=== PATIENT | female | born 1985 | race American Indian/Alaskan Native ===

== ENCOUNTER 2019-05-10 00:13 | Inpatient (IN) | payer OTHER ==
[2019-05-10] MEDS ORDERED: LACTATED RINGERS 500 ML IV ONE (00:46)
[2019-05-10] MEDS ORDERED: LACTATED RINGERS 1,000 ML IV ONE (01:08)
[2019-05-10 01:36] LABS: Hemoglobin 11.8 gm/dl (10.1-14.3); Mean Corpuscular HGB Conc 34 % (30-34); Mean Corpuscular Volume 80 fl (79-97); Platelet Count 270 K/mm3 (140-440); Red Blood Count 4.36 M/mm3 (3.65-5.03); Red Cell Distribution Width 13.7 % (13.2-15.2)
[2019-05-10 01:54] LABS: Alanine Aminotransferase 10 units/L (7-56)
[2019-05-10 02:52] LABS: Amorphous Crystals,Urine Few; Bilirubin,Urine NEG (Negative); Blood,Urine NEG (Negative); Color,Urine Yellow (Yellow); Mucus,Urine FEW /HPF
[2019-05-10 02:59] LABS: Amphetamine Screen,Urine PRESUMPTIVE NEGATIVE; Benzodiazepines Screen,Urine PRESUMPTIVE NEGATIVE; Cannabinoid Screen,Urine PRESUMPTIVE NEGATIVE; Cocaine Screen,Urine PRESUMPTIVE NEGATIVE; Methadone Screen,Urine PRESUMPTIVE NEGATIVE; Opiate Screen,Urine PRESUMPTIVE NEGATIVE
[2019-05-10 03:06] LABS: Uric Acid 4.7 mg/dL (3.5-7.6)
[2019-05-10] MEDS ORDERED: TYLENOL PO ONE (03:48)
[2019-05-10] MEDS: NORMODYNE PO SCH ×3 (04:23→22:42)
[2019-05-10] MEDS: APRESOLINE IV PRN ×2 (04:35→07:35)
[2019-05-10] MEDS ORDERED: BICITRA ONE (05:20)
[2019-05-10] MEDS ORDERED: BICITRA PO ONE (05:46)
[2019-05-10] MEDS ORDERED: SUBLIMAZE ONE (07:16)
--- NOTE | 2019-05-10 07:46 | History and Physical Report ---
History of Present Illness Date of examination: 05/10/19 Date of admission: 05/10/19 03:25 Chief complaint: pain History of present illness: 33y/o @ 33+1 weeks presents to triage with the complaint of abdominal pain. The patient has had limited care was last evaluated in January. Upon evaluation, the patient was found to have elevated blood pressures. LFTs wnl. Patient reports a history of hypertension but has not had meds. Past History Past Medical History: hypertension, other (morbid obesity; ectopic treated with Mtx) Past Surgical History: no surgical history Social history: single - Obstetrical History Expected Date of Delivery: 06/27/19 Actual Gestation: 33 Week(s) 1 Day(s) : 2 Para: 0 Hx # Term Pregnancies: 0 Number of Pregnancies: 0 Spontaneous Abortions: 1 Induced : 0 Number of Living Children: 0 Medications and Allergies Allergies Allergy/AdvReac Type Severity Reaction Status Date / Time No Known Allergies Allergy Unverified 03/20/15 19:31 Home Medications Medication Instructions Recorded Confirmed Last Taken Type HYDROcodone/APAP 5-325 [[place] 1 each PO Q6HR PRN #20 tablet 03/21/15 Unknown Rx 5/325] Active Meds: Active Medications Fentanyl (Sublimaze) 100 mcg IV ONCE ONE Stop: 05/10/19 08:01 Last Admin: 05/10/19 07:32 Dose: 100 mcg Documented by: Hydralazine HCl (Apresoline) 5 mg IV Q30MIN PRN PRN Reason: Increased Blood Pressure Last Admin: 05/10/19 07:35 Dose: 5 mg Documented by: Dextrose/Lactated Ringer's (D5lr) 1,000 mls @ 125 mls/hr IV DIRECT KHRIS Labetalol HCl (Normodyne) 200 mg PO BID KHRIS Last Admin: 05/10/19 04:23 Dose: 200 mg Documented by: Review of Systems All systems: negative Gastrointestinal: abdominal pain - Vital Signs Vital signs: Vital Signs Pulse BP Pulse Ox 97 H 187/105 91 05/10/19 00:39 05/10/19 00:39 05/10/19 00:39 Temp Pulse Resp BP Pulse Ox 104 H 20 182/91 82 L 05/10/19 07:35 05/10/19 07:32 05/10/19 07:35 05/10/19 01:24 - Physical Exam Breasts: Positive: deferred Cardiovascular: Regular rate Lungs: Positive: Clear to auscultation Results Result Diagrams: 05/10/19 01:00 05/10/19 01:00 Abnormal lab results 05/10/19 05/10/19 Range/Units 01:00 01:00 MCH 27 L (28-32) pg Creatinine 0.5 L (0.7-1.2) mg/dL Lactate Dehydrogenase 192 H (91-180) units/L All other labs normal. Assessment and Plan - Patient Problems (1) Abdominal pain affecting Current Visit: Yes Status: Acute Plan to address problem: obtain RUQ ultrasound administer steroids for lung maturity collect 24 hour urine management of blood pressures (2) Hypertension affecting Current Visit: Yes Status: Acute
[2019-05-10] MEDS ORDERED: COLACE PO PRN (08:00)
[2019-05-10] MEDS ORDERED: SUBLIMAZE IV ONE (08:00)
[2019-05-10] MEDS ORDERED: MAGNESIUM SULFATE 4GM/100ML 4 GM/100 ML BAG IV ONE (08:24)
[2019-05-10 10:08] LABS: Hepatitis C Virus Antibody Non-Reactive (NonReactive)
--- NOTE | 2019-05-10 10:16 | Ultrasound Report ---
OB ULTRASOUND >= 14 WEEKS FETUS INDICATION: No care, well-being COMPARISON: FINDINGS: A single gestation intrauterine is present with cephalic presentation. The placenta is ante rior, grade 1 and free of the cervical os. heart tones measure 129 bpm. The cervix measures 4. 9 cm. Amniotic fluid volume is normal with a fluid index of 13.3. anatomical survey was not performed. Biparietal diameter is 8.5 cm which equals 34 weeks 2 days. Head circumference is 31.2 cm which equals 34 weeks 6 days. Abdominal circumference is 32.0 cm which equals 35 weeks 6 days. Femur length is 6.4 cm which equals 33 weeks 0 days. Overall estimated sonographic age is 34 weeks 4 days. HC/AC ratio: 0.97 Cephalic index: 95.0 Estimated weight: 2536 g +/- 3 175 g. Estimated weight percentile: 89.. IMPRESSION: Viable, single intrauterine as described. No acute abnormality is detected. Signer Name: Arnoldo Morales Jr, MD Signed: 05/10/2019 10:12 AM Workstation Name: [id number]
[2019-05-10] MEDS: CELESTONE SOLUSPAN IM SCH (10:25)
[2019-05-10] MEDS: MAGNESIUM SULFATE 40GM/1000ML 40 GM/1,000 ML BAG IV SCH (10:57)
[2019-05-10] MEDS: STADOL IV PRN (11:24)
[2019-05-10] MEDS: PRENATAL VITAMIN PO SCH (11:25)
[2019-05-10] MEDS: D5LR 1,000 ML IV SCH (17:32)
--- NOTE | 2019-05-10 17:56 | Consultation ---
History of Present Illness Consult date: 05/10/19 Past History Past Medical History: hypertension, other (morbid obesity; ectopic treated with Mtx) Past Surgical History: no surgical history - Obstetrical History : 2 Medications and Allergies Allergies Allergy/AdvReac Type Severity Reaction Status Date / Time No Known Allergies Allergy Unverified 03/20/15 19:31 Home Medications Medication Instructions Recorded Confirmed Last Taken Type HYDROcodone/APAP 5-325 [[place] 1 each PO Q6HR PRN #20 tablet 03/21/15 Unknown Rx 5/325] Active Meds: Active Medications Acetaminophen (Tylenol) 650 mg PO Q4H PRN PRN Reason: Pain MILD(1-3)/Fever >100.5/PEREZ Betamethasone Acet/Betameth SodPhos ([place] Soluspan) 12 mg IM Q24H KHRIS Stop: 05/11/19 10:01 Last Admin: 05/10/19 10:25 Dose: 12 mg Documented by: Butorphanol Tartrate (Stadol) 2 mg IV Q4H PRN PRN Reason: Labor Pain Last Admin: 05/10/19 11:24 Dose: 2 mg Documented by: Docusate Sodium (Colace) 100 mg PO Q12H PRN PRN Reason: Constipation Hydralazine HCl (Apresoline) 5 mg IV Q30MIN PRN PRN Reason: Increased Blood Pressure Last Admin: 05/10/19 07:35 Dose: 5 mg Documented by: Dextrose/Lactated Ringer's (D5lr) 1,000 mls @ 125 mls/hr IV DIRECT KHRIS Last Admin: 05/10/19 17:32 Dose: 125 mls/hr Documented by: Magnesium Sulfate (Magnesium Sulfate 40gm/1000ml) 40 gm in 1,000 mls @ 50 mls/hr IV DIRECT KHRIS Last Admin: 05/10/19 10:57 Dose: 2 gm/hr, 50 mls/hr Documented by: Labetalol HCl (Normodyne) 400 mg PO BID COUNT INCLUDES THE [facility] Multivitamins/Iron/Calcium ( Vitamin) 1 each PO QDAY KHRIS Last Admin: 05/10/19 11:25 Dose: 1 each Documented by: - Vital Signs Vital signs: Vital Signs Pulse BP Pulse Ox 97 H 187/105 91 05/10/19 00:39 05/10/19 00:39 05/10/19 00:39 Temp Pulse Resp BP Pulse Ox 98.4 F 94 H 18 144/90 82 L 05/10/19 15:55 05/10/19 17:27 05/10/19 15:55 05/10/19 17:27 05/10/19 01:24 Results Result Diagrams: 05/10/19 01:00 05/10/19 01:00 Abnormal lab results 05/10/19 05/10/19 Range/Units 01:00 01:00 MCH 27 L (28-32) pg Creatinine 0.5 L (0.7-1.2) mg/dL Lactate Dehydrogenase 192 H (91-180) units/L All other labs normal. [facility] Full consult to follow
--- NOTE | 2019-05-11 00:33 | Ultrasound Report ---
ULTRASOUND ABDOMEN, LIMITED (RIGHT UPPER QUADRANT) INDICATION: RUQ pain. COMPARISON: None available. FINDINGS: Pancreas: Visualized portion shows no significant abnormality. Liver: Normal. Gallbladder: Contains multiple stones but no wall thickening or pericholecystic fluid. Bile ducts: Normal. Common Bile Duct measures 5.2 mm. Free fluid: None. Additional Findings: None. IMPRESSION: 1. Cholelithiasis Signer Name: Felice Harris MD Signed: 05/11/2019 12:28 AM Workstation Name: [id number]
[2019-05-11] MEDS: MAGNESIUM SULFATE 40GM/1000ML 40 GM/1,000 ML BAG IV SCH (06:39)
[2019-05-11] MEDS: D5LR 1,000 ML IV SCH (06:39)
--- NOTE | 2019-05-11 08:10 | Progress Note ---
Assessment and Plan - Patient Problems (1) Abdominal pain affecting Current Visit: Yes Status: Acute Plan to address problem: awaiting 24hr urine results will perform glucola testing (2) Hypertension affecting Current Visit: Yes Status: Acute Subjective - Subjective Date of service: 05/11/19 Interval history: 33y/o @ 33+2 weeks being managed for elevated blood pressures. RUQ ultrasound indicates multiple gallstones. No evidence of cholecystitis. Blood pressures remain labile. Patient evaluated by MFM. 24hr urine to be completed this am. Patient reports: no new complaints, no loss of fluid Objective - Vital Signs Vital Signs: Vital Signs - 12hr 05/10/19 05/10/19 05/10/19 20:28 21:09 21:31 Temperature 98.3 F Pulse Rate 99 H 102 H 98 H Respiratory 20 Rate Blood Pressure 161/93 133/80 146/86 05/10/19 05/10/19 05/11/19 22:31 23:31 00:31 Temperature Pulse Rate 99 H 92 H 89 Respiratory Rate Blood Pressure 169/77 131/63 146/72 05/11/19 05/11/19 05/11/19 01:37 02:31 03:31 Temperature Pulse Rate 90 88 86 Respiratory Rate Blood Pressure 154/82 138/74 128/69 05/11/19 05/11/19 05/11/19 04:31 05:31 06:32 Temperature Pulse Rate 88 83 86 Respiratory Rate Blood Pressure 141/77 140/81 158/86 05/11/19 05/11/19 05/11/19 07:35 07:50 07:55 Temperature 98.3 F Pulse Rate 89 89 Respiratory Rate Blood Pressure 172/95 173/98 - Labs Labs: Abnormal Labs 05/10/19 05/10/19 05/11/19 01:00 01:00 02:25 MCH 27 L Creatinine 0.5 L Magnesium 4.30 H Lactate Dehydrogenase 192 H Laboratory Results - last 24 hr 05/10/19 05/10/19 05/10/19 07:57 07:57 07:57 Sickle Cell Screen Negative Magnesium Hep Bs Antigen Non-reactive Hepatitis C Antibody Non-reactive HIV 1&2 Antibody Rapid Non react HIV P24 Antigen Non react Rubella IgG Antibody Immune Blood Type Antibody Screen 05/10/19 05/11/19 07:57 02:25 Sickle Cell Screen Magnesium 4.30 H Hep Bs Antigen Hepatitis C Antibody HIV 1&2 Antibody Rapid HIV P24 Antigen Rubella IgG Antibody Blood Type O POSITIVE Antibody Screen Negative
[2019-05-11] MEDS ORDERED: LACTATED RINGERS 1,000 ML ONE (08:58)
[2019-05-11] MEDS: PRENATAL VITAMIN PO SCH (09:02)
[2019-05-11] MEDS: APRESOLINE IV PRN ×2 (09:03→12:02)
[2019-05-11] MEDS: CELESTONE SOLUSPAN IM SCH (09:04)
[2019-05-11] MEDS: NORMODYNE PO SCH ×2 (10:36→22:02)
[2019-05-11] MEDS: STADOL IV PRN ×2 (10:53→21:26)
[2019-05-11] MEDS ORDERED: LACTATED RINGERS 1,000 ML IV SCH ×2 (11:00)
[2019-05-11 12:45] LABS: Creatinine,Urine 144.4 mg/dL (0.1-20.0); Creatinine,Urine 145.2 mg/dL (0.1-20.0)
[2019-05-12] MEDS: PRENATAL VITAMIN PO SCH (11:07)
[2019-05-12] MEDS: NORMODYNE PO SCH ×2 (11:07→22:29)
--- NOTE | 2019-05-12 11:11 | Progress Note ---
Assessment and Plan A: 1. IUP at 33 3/7 weeks gestation 2. CHTN with superimposed preeclampsia based on 24 our urine collection (no baseline available for comparison) 3. RUQ pain -resolved 4 Insufficient care Rec: Continue Labetalol at current dose titrate to maintain BP 120-160/80-105mmhg IV Hydralazine prn SBP>160 DBP>110 WIll need twice weekly testing with BPP Delivery recommended at 34 weeks Subjective - Subjective Interval history: No complaints. Denies headaches, visual changes, chest pain, SOB or RUQ pain. Good movement. Patient reports: no new complaints, no loss of fluid Objective - Vital Signs Vital Signs: Vital Signs - 12hr 05/11/19 05/12/19 05/12/19 23:10 00:04 06:28 Pulse Rate 90 93 H 92 H Blood Pressure 138/66 146/87 172/92 05/12/19 05/12/19 05/12/19 06:34 07:06 07:37 Pulse Rate 83 83 85 Blood Pressure 171/95 142/84 181/89 05/12/19 05/12/19 05/12/19 08:11 09:27 09:32 Pulse Rate 87 92 H 90 Blood Pressure 165/90 185/94 175/86 05/12/19 05/12/19 09:34 09:38 Pulse Rate 91 H 88 Blood Pressure 179/86 200/119 - Exam Abdomen: Present: soft - Labs Labs: Abnormal Labs 05/10/19 05/10/19 05/10/19 01:00 01:00 10:40 MCH 27 L Creatinine 0.5 L Magnesium Lactate Dehydrogenase 192 H Urine Creatinine 145.2 H Ur Total Protein 24 Hr Urine Total Protein 05/10/19 05/11/19 05/11/19 10:40 02:25 10:40 MCH Creatinine Magnesium 4.30 H Lactate Dehydrogenase Urine Creatinine 144.4 H Ur Total Protein 24 Hr 337.50 H Urine Total Protein 25 H 05/11/19 05/11/19 05/11/19 10:55 12:40 17:45 MCH Creatinine Magnesium 4.00 H 3.70 H 3.30 H Lactate Dehydrogenase Urine Creatinine Ur Total Protein 24 Hr Urine Total Protein Laboratory Results - last 24 hr 05/10/19 05/10/19 05/11/19 10:40 10:40 10:40 Post-Glucola Glucose Magnesium Urine Total Volume 1350 1350 1350 Urine Creatinine 145.2 H 144.4 H Ur Creatinine 24 Hour 2.0 Height (in) 67.0 Weight (lb) 299.0 Creatinine Clearance 195 Ur Total Protein 24 Hr 337.50 H Urine Total Protein 25 H 05/11/19 05/11/19 05/11/19 10:55 12:40 17:45 Post-Glucola Glucose Magnesium 4.00 H 3.70 H 3.30 H Urine Total Volume Urine Creatinine Ur Creatinine 24 Hour Height (in) Weight (lb) Creatinine Clearance Ur Total Protein 24 Hr Urine Total Protein 05/12/19 08:22 Post-Glucola Glucose 106 Magnesium Urine Total Volume Urine Creatinine Ur Creatinine 24 Hour Height (in) Weight (lb) Creatinine Clearance Ur Total Protein 24 Hr Urine Total Protein
--- NOTE | 2019-05-12 12:01 | Progress Note ---
Assessment and Plan - Patient Problems (1) Abdominal pain affecting Current Visit: Yes Status: Acute Plan to address problem: will add procardia to meds induction at 34 weeks twice weekly BPP (2) Hypertension affecting Current Visit: Yes Status: Acute Subjective - Subjective Date of service: 05/12/19 Interval history: 33y/o @ 33+3 weeks being managed for elevated blood pressures. [facility] has recommended delivery at 34 weeks ega. The patient's RUQ pain is intermittent. 1hr glucola performed. Blood pressures remain in 160-170's. Will need to change parameters for administration of IV hydralazine. Patient reports: no new complaints, no loss of fluid Objective - Vital Signs Vital Signs: Vital Signs - 12hr 05/12/19 05/12/19 05/12/19 00:04 06:28 06:34 Pulse Rate 93 H 92 H 83 Blood Pressure 146/87 172/92 171/95 05/12/19 05/12/19 05/12/19 07:06 07:37 08:11 Pulse Rate 83 85 87 Blood Pressure 142/84 181/89 165/90 05/12/19 05/12/19 05/12/19 09:27 09:32 09:34 Pulse Rate 92 H 90 91 H Blood Pressure 185/94 175/86 179/86 05/12/19 05/12/19 05/12/19 09:38 11:07 11:08 Pulse Rate 88 90 90 Blood Pressure 200/119 177/84 177/84 - Labs Labs: Abnormal Labs 05/10/19 05/10/19 05/10/19 01:00 01:00 10:40 MCH 27 L Creatinine 0.5 L Magnesium Lactate Dehydrogenase 192 H Urine Creatinine 145.2 H Ur Total Protein 24 Hr Urine Total Protein 05/10/19 05/11/19 05/11/19 10:40 02:25 10:40 MCH Creatinine Magnesium 4.30 H Lactate Dehydrogenase Urine Creatinine 144.4 H Ur Total Protein 24 Hr 337.50 H Urine Total Protein 25 H 05/11/19 05/11/19 05/11/19 10:55 12:40 17:45 MCH Creatinine Magnesium 4.00 H 3.70 H 3.30 H Lactate Dehydrogenase Urine Creatinine Ur Total Protein 24 Hr Urine Total Protein Laboratory Results - last 24 hr 05/10/19 05/10/19 05/11/19 10:40 10:40 10:40 Post-Glucola Glucose Glucose Tolerance Magnesium Urine Total Volume 1350 1350 1350 Urine Creatinine 145.2 H 144.4 H Ur Creatinine 24 Hour 2.0 Height (in) 67.0 Weight (lb) 299.0 Creatinine Clearance 195 Ur Total Protein 24 Hr 337.50 H Urine Total Protein 25 H 05/11/19 05/11/19 05/12/19 12:40 17:45 08:22 Post-Glucola Glucose 106 Glucose Tolerance Magnesium 3.70 H 3.30 H Urine Total Volume Urine Creatinine Ur Creatinine 24 Hour Height (in) Weight (lb) Creatinine Clearance Ur Total Protein 24 Hr Urine Total Protein 05/12/19 08:22 Post-Glucola Glucose Glucose Tolerance Magnesium Urine Total Volume Urine Creatinine Ur Creatinine 24 Hour Height (in) Weight (lb) Creatinine Clearance Ur Total Protein 24 Hr Urine Total Protein
[2019-05-12] MEDS: PROCARDIA XL PO SCH (12:19)
[2019-05-12] MEDS: STADOL IV PRN (18:15)
[2019-05-12] MEDS: APRESOLINE IV PRN ×2 (22:30→23:02)
[2019-05-13] MEDS: TYLENOL PO PRN (06:40)
[2019-05-13] MEDS: APRESOLINE IV PRN ×2 (06:46→11:08)
[2019-05-13] MEDS: NORMODYNE PO SCH ×2 (09:33→22:10)
[2019-05-13] MEDS: PRENATAL VITAMIN PO SCH (09:33)
[2019-05-13] MEDS: PROCARDIA XL PO SCH (09:33)
--- NOTE | 2019-05-13 09:57 | Ultrasound Report ---
ULTRASOUND OBSTETRIC INDICATION / CLINICAL INFORMATION: hypertension in . Clinical Gestational Age (GA): 33 weeks 4 days TECHNIQUE: Transabdominal. COMPARISON: None available. FINDINGS: BREATHING MOVEMENT = 2 GROSS BODY MOVEMENT = 2 TONE = 2 QUALITATIVE AMNIOTIC FLUID VOLUME = 2 TOTAL BIOPHYSICAL SCORE = /8 heart rate: 134 bpm. IMPRESSION: 1. Normal biophysical profile 05/10. Signer Name: Gaudencio Arzola MD Signed: 05/13/2019 9:53 AM Workstation Name: [id number]
--- NOTE | 2019-05-13 12:28 | Progress Note ---
Assessment and Plan - Patient Problems (1) Abdominal pain affecting Current Visit: Yes Status: Acute Plan to address problem: continue current management NICU consult generated (2) Hypertension affecting Current Visit: Yes Status: Acute Subjective - Subjective Date of service: 05/13/19 Interval history: 33y/o @ 33+4 weeks being managed for elevated blood pressures. Blood pressures have remained labile. Plan to schedule induction at 34 weeks. Patient is without complaints. BPP 8/8. Patient reports: no new complaints, no loss of fluid Objective - Vital Signs Vital Signs: Vital Signs - 12hr 05/13/19 05/13/19 05/13/19 01:10 04:51 05:11 Temperature Pulse Rate 85 85 88 Respiratory Rate Blood Pressure 141/78 181/106 195/110 Blood Pressure [Left] 05/13/19 05/13/19 05/13/19 06:11 06:44 08:32 Temperature 96.8 F L Pulse Rate 80 88 93 H Respiratory 18 Rate Blood Pressure 196/106 169/95 180/103 Blood Pressure 180/103 [Left] 05/13/19 05/13/19 05/13/19 08:46 09:11 09:32 Temperature Pulse Rate 96 H 93 H 91 H Respiratory Rate Blood Pressure 182/105 204/99 175/93 Blood Pressure [Left] 05/13/19 05/13/19 05/13/19 09:33 10:10 11:05 Temperature Pulse Rate 91 H 86 91 H Respiratory Rate Blood Pressure 175/93 173/97 181/119 Blood Pressure [Left] 05/13/19 05/13/19 11:08 12:06 Temperature Pulse Rate 91 H 95 H Respiratory Rate Blood Pressure 181/119 154/88 Blood Pressure [Left] - Labs Labs: Abnormal Labs 05/10/19 05/10/19 05/10/19 01:00 01:00 10:40 MCH 27 L Creatinine 0.5 L Magnesium Lactate Dehydrogenase 192 H Urine Creatinine 145.2 H Ur Total Protein 24 Hr Urine Total Protein 05/10/19 05/11/19 05/11/19 10:40 02:25 10:40 MCH Creatinine Magnesium 4.30 H Lactate Dehydrogenase Urine Creatinine 144.4 H Ur Total Protein 24 Hr 337.50 H Urine Total Protein 25 H 05/11/19 05/11/19 05/11/19 10:55 12:40 17:45 MCH Creatinine Magnesium 4.00 H 3.70 H 3.30 H Lactate Dehydrogenase Urine Creatinine Ur Total Protein 24 Hr Urine Total Protein
[2019-05-13] MEDS: STADOL IV PRN (13:08)
--- NOTE | 2019-05-13 22:20 | Consultation ---
Consult Note - Parent Education I met with parent(s) and discussed the following:: Need for NICU admission, Poss ible need for intubation and surfactant or other resp support, Temperature regulation, Possible need for IV fluids/TPN and IV antibiotics, Possible need for umbilical lines, Importance of providing breast milk & encouraged pumping aft delivery, Donor breast milk if baby meets criteria after , Slow feeding advancement and monitoring of tolerance. NG/OG feeds, Need to monitor for jaundice, Data for survival & survival without significant co-morbidities Parent(s) demonstrated understanding of all the information:: Yes Assessment and Plan - Assessment Gestation:: 33 (Delivery @ 34 weeks) - Plan Plan: Agree with Mag & steroids Will attend delivery Please call NICU with questions
--- NOTE | 2019-05-14 07:39 | Progress Note ---
Assessment and Plan A/P IUP 33+5 weeks chronic HTN with superimposed pree s/p NICCU consult s/p Betamethatsone s/p High risk consult [facility] recommends delivery at 34 weeks Subjective - Subjective Date of service: 05/14/19 Principal diagnosis: Chronic HTn with superimposed pree Patient reports: movement normal, no new complaints, no loss of fluid, no vaginal bleeding, no contractions Objective - Vital Signs Vital Signs: Vital Signs - 12hr 05/13/19 05/13/19 05/13/19 20:51 21:13 22:10 Temperature Pulse Rate 90 90 90 Respiratory Rate Blood Pressure 157/92 148/78 148/78 Blood Pressure [Right] 05/14/19 05/14/19 05/14/19 03:07 03:13 04:13 Temperature Pulse Rate 88 79 89 Respiratory Rate Blood Pressure 122/75 123/61 134/76 Blood Pressure [Right] 05/14/19 05/14/19 05/14/19 05:13 06:13 07:14 Temperature Pulse Rate 86 82 102 H Respiratory Rate Blood Pressure 141/84 141/85 155/90 Blood Pressure [Right] 05/14/19 07:31 Temperature 98.1 F Pulse Rate 93 H Respiratory 18 Rate Blood Pressure 138/80 Blood Pressure 138/80 [Right] - Exam Breasts: normal Cardiovascular: Regular rate, Normal S1 Lungs: Clear to auscultation, Normal air movement Abdomen: Present: normal appearance, soft, normal bowel sounds. Absent: distention, tenderness, guarding Vulva: both: normal Uterus: Present: normal, firm. Absent: bogginess, tenderness FHR: auscultation normal Extremities: normal Deep Tendon Reflex Grade: Normal +2 - Labs Labs: Abnormal Labs 05/10/19 05/10/19 05/10/19 01:00 01:00 10:40 MCH 27 L Creatinine 0.5 L Magnesium Lactate Dehydrogenase 192 H Urine Creatinine 145.2 H Ur Total Protein 24 Hr Urine Total Protein 05/10/19 05/11/19 05/11/19 10:40 02:25 10:40 MCH Creatinine Magnesium 4.30 H Lactate Dehydrogenase Urine Creatinine 144.4 H Ur Total Protein 24 Hr 337.50 H Urine Total Protein 25 H 05/11/19 05/11/19 05/11/19 10:55 12:40 17:45 MCH Creatinine Magnesium 4.00 H 3.70 H 3.30 H Lactate Dehydrogenase Urine Creatinine Ur Total Protein 24 Hr Urine Total Protein
[2019-05-14] MEDS: NORMODYNE PO SCH ×2 (10:08→21:57)
[2019-05-14] MEDS: PRENATAL VITAMIN PO SCH (10:09)
[2019-05-14] MEDS: PROCARDIA XL PO SCH (10:09)
[2019-05-14] MEDS: STADOL IV PRN ×2 (12:30→22:38)
--- NOTE | 2019-05-14 13:09 | Progress Note ---
Assessment and Plan IUP at 33 5/7 weeks' Severe superimposed preeclampsia Limited care Proceed with delivery by 34 0/7 weeks' Subjective - Subjective Date of service: 05/14/19 Principal diagnosis: Chronic HTn with superimposed pree Interval history: Feeling well, fetus active Patient reports: movement normal, no new complaints, no loss of fluid, no vaginal bleeding, no contractions Objective - Vital Signs Vital Signs: Vital Signs - 12hr 05/14/19 05/14/19 05/14/19 03:07 03:13 04:13 Temperature Pulse Rate 88 79 89 Respiratory Rate Blood Pressure 122/75 123/61 134/76 Blood Pressure [Left] Blood Pressure [Right] 05/14/19 05/14/19 05/14/19 05:13 06:13 07:14 Temperature Pulse Rate 86 82 102 H Respiratory Rate Blood Pressure 141/84 141/85 155/90 Blood Pressure [Left] Blood Pressure [Right] 05/14/19 05/14/19 05/14/19 07:31 10:01 10:08 Temperature 98.1 F Pulse Rate 93 H 101 H 101 H Respiratory 18 Rate Blood Pressure 138/80 138/82 138/82 Blood Pressure [Left] Blood Pressure 138/80 [Right] 05/14/19 05/14/19 05/14/19 11:02 12:28 12:30 Temperature 97.1 F L Pulse Rate 91 H 94 H Respiratory 16 16 Rate Blood Pressure 137/78 133/79 Blood Pressure 133/79 [Left] Blood Pressure [Right] 05/14/19 13:02 Temperature Pulse Rate 83 Respiratory Rate Blood Pressure 119/60 Blood Pressure [Left] Blood Pressure [Right] - Exam Narrative Exam: Abd soft, nontender; FHT's not currently monitored; DTR 1-2+ - Labs Labs: Abnormal Labs 05/10/19 05/10/19 05/10/19 01:00 01:00 10:40 MCH 27 L Creatinine 0.5 L Magnesium Lactate Dehydrogenase 192 H Urine Creatinine 145.2 H Ur Total Protein 24 Hr Urine Total Protein 05/10/19 05/11/19 05/11/19 10:40 02:25 10:40 MCH Creatinine Magnesium 4.30 H Lactate Dehydrogenase Urine Creatinine 144.4 H Ur Total Protein 24 Hr 337.50 H Urine Total Protein 25 H 05/11/19 05/11/19 05/11/19 10:55 12:40 17:45 MCH Creatinine Magnesium 4.00 H 3.70 H 3.30 H Lactate Dehydrogenase Urine Creatinine Ur Total Protein 24 Hr Urine Total Protein
[2019-05-14] MEDS: APRESOLINE IV PRN (23:13)
[2019-05-15] MEDS: APRESOLINE IV PRN (05:45)
--- NOTE | 2019-05-15 08:19 | Progress Note ---
Assessment and Plan A/P IUP 33+6 weeks chronic HTN with superimposed pree s/p NICCU consult s/p Betamethatsone s/p High risk consult BPP antepartum testing today tomorrow will initiate IOL for superimposed pree Subjective - Subjective Date of service: 05/15/19 Principal diagnosis: Chronic HTn with superimposed pree Patient reports: movement normal, no new complaints, no loss of fluid, no vaginal bleeding, no contractions Objective - Vital Signs Vital Signs: Vital Signs - 12hr 05/14/19 05/14/19 05/14/19 20:37 21:33 21:57 Temperature Pulse Rate 96 H 96 H Respiratory Rate Blood Pressure 148/90 150/93 Blood Pressure [Left] Blood Pressure 150/93 [Right] 05/14/19 05/14/19 05/14/19 22:30 22:38 23:01 Temperature Pulse Rate Respiratory 16 Rate Blood Pressure Blood Pressure [Left] Blood Pressure 165/95 187/90 [Right] 05/14/19 05/14/19 05/14/19 23:13 23:32 23:38 Temperature 97.6 F Pulse Rate 86 85 Respiratory 14 Rate Blood Pressure 187/90 Blood Pressure [Left] Blood Pressure 167/79 [Right] 05/14/19 05/15/19 05/15/19 23:54 00:55 01:54 Temperature Pulse Rate 88 85 79 Respiratory Rate Blood Pressure Blood Pressure [Left] Blood Pressure 145/88 142/83 155/78 [Right] 05/15/19 05/15/19 05/15/19 05:45 06:40 08:13 Temperature 97.2 F L Pulse Rate 88 93 H 93 H Respiratory 16 18 Rate Blood Pressure 189/98 Blood Pressure 152/87 154/94 [Left] Blood Pressure [Right] - Exam Breasts: normal Cardiovascular: Regular rate, Normal S1 Lungs: Clear to auscultation, Normal air movement Abdomen: Present: normal appearance, soft, normal bowel sounds. Absent: distention, tenderness, guarding Vulva: both: normal Uterus: Present: normal, firm. Absent: bogginess, tenderness FHR: category 1 - Labs Labs: Abnormal Labs 05/10/19 05/10/19 05/10/19 01:00 01:00 10:40 MCH 27 L Creatinine 0.5 L Magnesium Lactate Dehydrogenase 192 H Urine Creatinine 145.2 H Ur Total Protein 24 Hr Urine Total Protein 08/08/19 08/09/19 08/09/19 10:40 02:25 10:40 MCH Creatinine Magnesium 4.30 H Lactate Dehydrogenase Urine Creatinine 144.4 H Ur Total Protein 24 Hr 337.50 H Urine Total Protein 25 H 05/11/19 05/11/19 05/11/19 10:55 12:40 17:45 MCH Creatinine Magnesium 4.00 H 3.70 H 3.30 H Lactate Dehydrogenase Urine Creatinine Ur Total Protein 24 Hr Urine Total Protein
[2019-05-15] MEDS: STADOL IV PRN ×3 (09:03→22:13)
[2019-05-15] MEDS: PROCARDIA XL PO SCH (09:49)
[2019-05-15] MEDS: PRENATAL VITAMIN PO SCH (09:49)
[2019-05-15] MEDS: NORMODYNE PO SCH ×2 (09:49→22:13)
--- NOTE | 2019-05-15 12:58 | Ultrasound Report ---
ULTRASOUND OBSTETRIC Indication: BPP and dopplers , well being Findings: There is a single intrauterine . BPD = 9.3 cm = 37 weeks, 5 day(s). Head circumference = 33.4 cm = 38 weeks, 1 day(s). Abdominal circumference = 32.6 cm = 36 weeks, 4 day(s). Femur length = 6.2 cm = 32 weeks, 2 day(s). Overall estimated sonographic age = 36 weeks, 1 day(s). heart rate is 129 beats per minute. Estimated weight is 2762 grams position is cephalic. Placenta is anterior and grade 1 . Amniotic fluid volume appears normal. Amniotic fluid index is 15.2 cm Impression: 1. Single living intrauterine with estimated sonographic age of 36 weeks, 1 day(s). 2. No sonographic abnormality identified. biophysical profile INDICATION: well-being FINDINGS: Score for breathing movements is 2. Score for movements is 2. Score for p osture and tone is 2. Score for qualitative amniotic fluid volume is 2. IMPRESSION: Biophysical profile score is 8 out of 8. Umbilical artery Doppler INDICATION: well-being FINDINGS: heart rate is 141 bpm at the time of this evaluation The SD ratio average is 2.66 with a persistent end-diastolic waveform The resistive index averages 0.62 with a normal waveform with persistent end-diastolic flow pattern IMPRESSION: Umbilical artery Doppler is within normal limits. Signer Name: Jose A Alva MD Signed: 05/15/2019 12:53 PM Workstation Name: [id number]
[2019-05-15] MEDS ORDERED: PEPCID IV ONE (19:32)
[2019-05-15] MEDS ORDERED: CERVIDIL VG ONE (23:56)
[2019-05-16] MEDS: APRESOLINE IV PRN ×3 (02:13→08:30)
[2019-05-16 05:26] LABS: Hematocrit 37.4 % (30.3-42.9); Hemoglobin 12.3 gm/dl (10.1-14.3); Mean Corpuscular HGB Conc 33 % (30-34); Mean Corpuscular Volume 81 fl (79-97); Platelet Count 268 K/mm3 (140-440); Red Blood Count 4.62 M/mm3 (3.65-5.03); Red Cell Distribution Width 14.4 % (13.2-15.2)
[2019-05-16] MEDS: NORMODYNE PO SCH ×2 (09:46→22:17)
[2019-05-16] MEDS: PRENATAL VITAMIN PO SCH (09:46)
[2019-05-16] MEDS: PROCARDIA XL PO SCH (09:47)
--- NOTE | 2019-05-16 10:06 | Progress Note ---
Assessment and Plan - Patient Problems (1) Abdominal pain affecting Current Visit: Yes Status: Acute (2) Hypertension affecting Current Visit: Yes Status: Acute (3) Pre-eclampsia superimposed on chronic hypertension Current Visit: Yes Status: Acute Plan to address problem: undergoing induction with cervidil Subjective - Subjective Date of service: 05/16/19 Principal diagnosis: Chronic HTn with superimposed pree Interval history: 33y/o @ 340 weeks being managed for elevated blood pressures. Induction has been initiated. Cervidil placed at MN due to be removed at noon. Patient without complaints. Patient reports: movement normal, no new complaints, no loss of fluid, no vaginal bleeding, no contractions Objective - Vital Signs Vital Signs: Vital Signs - 12hr 05/15/19 05/15/19 05/16/19 22:22 22:53 00:34 Temperature Pulse Rate 92 H 96 H 83 Respiratory 18 Rate Blood Pressure 150/100 167/102 Blood Pressure 147/89 [Right] 05/16/19 05/16/19 05/16/19 01:04 02:05 02:13 Temperature Pulse Rate 86 94 H Respiratory 18 Rate Blood Pressure 179/102 Blood Pressure 150/86 179/102 [Right] 05/16/19 05/16/19 05/16/19 02:28 02:44 02:59 Temperature Pulse Rate 94 H 92 H 93 H Respiratory Rate Blood Pressure 163/108 172/99 170/98 Blood Pressure [Right] 05/16/19 05/16/19 05/16/19 03:14 03:29 03:44 Temperature Pulse Rate 94 H 93 H 93 H Respiratory Rate Blood Pressure 167/93 161/86 144/91 Blood Pressure [Right] 05/16/19 05/16/19 05/16/19 03:59 04:14 04:29 Temperature Pulse Rate 93 H 92 H 93 H Respiratory Rate Blood Pressure 149/84 139/81 139/78 Blood Pressure [Right] 05/16/19 05/16/19 05/16/19 04:44 04:59 05:14 Temperature Pulse Rate 96 H 96 H 93 H Respiratory Rate Blood Pressure 147/82 138/83 134/77 Blood Pressure [Right] 05/16/19 05/16/19 05/16/19 05:15 05:30 05:44 Temperature 97.9 F Pulse Rate 93 H 89 Respiratory Rate Blood Pressure 130/73 142/72 Blood Pressure [Right] 05/16/19 05/16/19 05/16/19 05:59 06:14 06:29 Temperature Pulse Rate 90 93 H 93 H Respiratory Rate Blood Pressure 134/71 131/69 157/93 Blood Pressure [Right] 05/16/19 05/16/19 05/16/19 06:44 08:24 08:30 Temperature Pulse Rate 91 H 95 H 95 H Respiratory Rate Blood Pressure 156/93 163/100 163/100 Blood Pressure [Right] 05/16/19 05/16/19 05/16/19 08:39 09:05 09:19 Temperature 97.7 F Pulse Rate 97 H 98 H Respiratory Rate Blood Pressure 170/98 160/81 Blood Pressure [Right] 05/16/19 09:46 Temperature Pulse Rate 100 H Respiratory Rate Blood Pressure 155/85 Blood Pressure [Right] - Labs Labs: Abnormal Labs 05/10/19 05/10/19 05/10/19 01:00 01:00 10:40 MCH 27 L Creatinine 0.5 L Magnesium Lactate Dehydrogenase 192 H Urine Creatinine 145.2 H Ur Total Protein 24 Hr Urine Total Protein 05/10/19 05/11/19 05/11/19 10:40 02:25 10:40 MCH Creatinine Magnesium 4.30 H Lactate Dehydrogenase Urine Creatinine 144.4 H Ur Total Protein 24 Hr 337.50 H Urine Total Protein 25 H 05/11/19 05/11/19 05/11/19 10:55 12:40 17:45 MCH Creatinine Magnesium 4.00 H 3.70 H 3.30 H Lactate Dehydrogenase Urine Creatinine Ur Total Protein 24 Hr Urine Total Protein 05/16/19 04:54 MCH 27 L Creatinine Magnesium Lactate Dehydrogenase Urine Creatinine Ur Total Protein 24 Hr Urine Total Protein Laboratory Results - last 24 hr 05/16/19 04:54 WBC 10.0 RBC 4.62 Hgb 12.3 Hct 37.4 MCV 81 MCH 27 L MCHC 33 RDW 14.4 Plt Count 268
--- NOTE | 2019-05-16 13:09 | Event Note ---
Date: 05/16/19 Cervidil removed after 12 hours. SVE 1/thick/high. Denies headache, scotomata, nausea.
[2019-05-16] MEDS: CYTOTEC VG PRN ×2 (15:19→23:48)
[2019-05-16] MEDS: LACTATED RINGERS 1,000 ML IV SCH (18:20)
[2019-05-16] MEDS: STADOL IV PRN (23:48)
[2019-05-17] MEDS: CYTOTEC VG PRN (03:45)
[2019-05-17] MEDS: LACTATED RINGERS 1,000 ML IV SCH ×2 (08:00→17:52)
[2019-05-17] MEDS ORDERED: PITOCin/NS 30 UNIT/500ML 30 UNITS/500 ML BAG IV SCH (09:00)
[2019-05-17] MEDS: PROCARDIA XL PO SCH (09:59)
[2019-05-17] MEDS: NORMODYNE PO SCH (09:59)
[2019-05-17] MEDS: PRENATAL VITAMIN PO SCH (09:59)
[2019-05-17] MEDS ORDERED: AMPICILLIN/NS 2 GM/100 ML 2 GM/100 ML BAG IV ONE (13:00)
--- NOTE | 2019-05-17 17:38 | Progress Note ---
Assessment and Plan - Patient Problems (1) Abdominal pain affecting Current Visit: Yes Status: Acute (2) Hypertension affecting Current Visit: Yes Status: Acute (3) Pre-eclampsia superimposed on chronic hypertension Current Visit: Yes Status: Acute Subjective - Subjective Date of service: 05/17/19 Principal diagnosis: Chronic HTn with superimposed pree Interval history: 33y/o @ 34+1 weeks being induced for superimposed preeclampsia. Patient reports: movement normal, no new complaints, no loss of fluid, no vaginal bleeding, no contractions Objective - Vital Signs Vital Signs: Vital Signs - 12hr 05/17/19 05/17/19 05/17/19 06:20 07:05 07:07 Temperature Pulse Rate 75 76 83 Respiratory Rate Blood Pressure 142/84 162/90 155/86 05/17/19 05/17/19 05/17/19 07:50 07:58 08:00 Temperature 98.5 F Pulse Rate 83 83 Respiratory 18 Rate Blood Pressure 182/95 165/85 05/17/19 05/17/19 05/17/19 08:02 09:50 09:59 Temperature Pulse Rate 82 97 H 97 H Respiratory Rate Blood Pressure 145/86 159/89 159/89 05/17/19 05/17/19 05/17/19 10:20 10:51 11:21 Temperature Pulse Rate 90 89 86 Respiratory Rate Blood Pressure 142/91 144/100 148/89 05/17/19 05/17/19 05/17/19 11:50 12:20 12:42 Temperature 98.5 F Pulse Rate 83 82 Respiratory 20 Rate Blood Pressure 138/81 136/78 05/17/19 05/17/19 05/17/19 12:50 13:20 13:50 Temperature Pulse Rate 83 85 85 Respiratory Rate Blood Pressure 165/94 133/73 137/71 05/17/19 05/17/19 05/17/19 14:20 14:53 15:27 Temperature 98.4 F Pulse Rate 86 94 H Respiratory 18 Rate Blood Pressure 123/69 161/81 05/17/19 05/17/19 05/17/19 15:51 16:24 16:51 Temperature Pulse Rate 87 88 85 Respiratory Rate Blood Pressure 128/63 170/97 147/90 05/17/19 17:22 Temperature Pulse Rate 84 Respiratory Rate Blood Pressure 169/95 - Labs Labs: Abnormal Labs 05/10/19 05/10/19 05/10/19 01:00 01:00 10:40 MCH 27 L Creatinine 0.5 L Magnesium Lactate Dehydrogenase 192 H Urine Creatinine 145.2 H Ur Total Protein 24 Hr Urine Total Protein 05/10/19 05/11/19 05/11/19 10:40 02:25 10:40 MCH Creatinine Magnesium 4.30 H Lactate Dehydrogenase Urine Creatinine 144.4 H Ur Total Protein 24 Hr 337.50 H Urine Total Protein 25 H 05/11/19 05/11/19 05/11/19 10:55 12:40 17:45 MCH Creatinine Magnesium 4.00 H 3.70 H 3.30 H Lactate Dehydrogenase Urine Creatinine Ur Total Protein 24 Hr Urine Total Protein 05/16/19 04:54 MCH 27 L Creatinine Magnesium Lactate Dehydrogenase Urine Creatinine Ur Total Protein 24 Hr Urine Total Protein
[2019-05-17] MEDS: AMPICILLIN/NS 1 GM/50 ML 1 GM/50 ML BAG IV PRN (17:53)
[2019-05-17] MEDS ORDERED: AMPICILLIN/NS 1 GM/50 ML 1 GM/50 ML BAG IV ONE (18:00)
[2019-05-17] MEDS: STADOL IV PRN (20:19)
[2019-05-17] MEDS: APRESOLINE IV PRN ×2 (20:29→21:48)
[2019-05-18] MEDS: STADOL IV PRN ×3 (01:58→11:53)
[2019-05-18] MEDS: NORMODYNE PO SCH ×3 (02:05→22:14)
[2019-05-18] MEDS: LACTATED RINGERS 1,000 ML IV SCH ×3 (03:30→20:29)
[2019-05-18] MEDS: APRESOLINE IV PRN ×2 (03:40→13:47)
[2019-05-18] MEDS: AMPICILLIN/NS 1 GM/50 ML 1 GM/50 ML BAG IV PRN ×2 (07:56→11:48)
--- NOTE | 2019-05-18 08:14 | Progress Note ---
Assessment and Plan A/P IUP 34+ weeks chronic HTN with superimposed pree s/p NICCU consult s/p Betamethatsone s/p High risk consult Day 3 of IOL s/p cervicil, cytotec and pitocin close monitor of progress ( IUPC placed) Subjective - Subjective Date of service: 05/18/19 Principal diagnosis: Chronic HTn with superimposed pree Patient reports: movement normal, no new complaints, no loss of fluid, no vaginal bleeding, no contractions Objective - Vital Signs Vital Signs: Vital Signs - 12hr 05/17/19 05/17/19 05/17/19 20:19 20:20 20:24 Temperature Pulse Rate 95 H 94 H Respiratory 18 Rate Blood Pressure 171/108 174/105 Blood Pressure [Right] 05/17/19 05/17/19 05/17/19 20:50 21:19 21:21 Temperature Pulse Rate 100 H 95 H Respiratory 18 Rate Blood Pressure 186/96 177/95 Blood Pressure [Right] 05/17/19 05/17/19 05/17/19 21:48 21:50 21:52 Temperature Pulse Rate 95 H 91 H 93 H Respiratory Rate Blood Pressure 177/95 184/104 158/75 Blood Pressure [Right] 05/17/19 05/17/19 05/17/19 22:21 23:15 23:22 Temperature 97.4 F L Pulse Rate 94 H 96 H Respiratory 18 Rate Blood Pressure 137/74 145/73 Blood Pressure [Right] 05/17/19 05/18/19 05/18/19 23:51 00:20 00:52 Temperature Pulse Rate 106 H 103 H 112 H Respiratory Rate Blood Pressure 160/76 143/73 156/88 Blood Pressure [Right] 05/18/19 05/18/19 05/18/19 01:58 02:05 02:09 Temperature Pulse Rate 104 H 105 H Respiratory 18 Rate Blood Pressure 175/110 106/65 Blood Pressure [Right] 05/18/19 05/18/19 05/18/19 02:11 02:21 02:50 Temperature Pulse Rate 104 H 107 H 111 H Respiratory Rate Blood Pressure 175/110 176/108 174/99 Blood Pressure [Right] 05/18/19 05/18/19 05/18/19 02:58 03:21 03:32 Temperature Pulse Rate 106 H 100 H Respiratory 18 Rate Blood Pressure 172/102 187/94 Blood Pressure [Right] 05/18/19 05/18/19 05/18/19 03:52 04:22 04:30 Temperature Pulse Rate 101 H 99 H 98 H Respiratory Rate Blood Pressure 171/99 197/112 152/72 Blood Pressure [Right] 05/18/19 05/18/19 05/18/19 04:51 05:20 06:22 Temperature Pulse Rate 93 H 92 H 96 H Respiratory Rate Blood Pressure 142/68 150/75 146/91 Blood Pressure [Right] 05/18/19 05/18/19 05/18/19 06:50 07:20 07:21 Temperature 98.1 F Pulse Rate 96 H 96 H 96 H Respiratory 20 Rate Blood Pressure 142/83 178/100 Blood Pressure 178/100 [Right] 05/18/19 05/18/19 07:27 07:50 Temperature Pulse Rate 100 H Respiratory 20 Rate Blood Pressure 149/89 Blood Pressure [Right] - Exam Breasts: normal Cardiovascular: Regular rate, Normal S1 Lungs: Clear to auscultation, Normal air movement Abdomen: Present: normal appearance, soft, normal bowel sounds. Absent: distention, tenderness, guarding Vulva: both: normal Uterus: Present: normal, firm. Absent: bogginess, tenderness FHR: category 1 Cervical Dilatation: 2 Uterine Contraction Pattern: Regular - Labs Labs: Abnormal Labs 05/10/19 05/10/19 05/10/19 01:00 01:00 10:40 MCH 27 L Creatinine 0.5 L Magnesium Lactate Dehydrogenase 192 H Urine Creatinine 145.2 H Ur Total Protein 24 Hr Urine Total Protein 05/10/19 05/11/19 05/11/19 10:40 02:25 10:40 MCH Creatinine Magnesium 4.30 H Lactate Dehydrogenase Urine Creatinine 144.4 H Ur Total Protein 24 Hr 337.50 H Urine Total Protein 25 H 05/11/19 05/11/19 05/11/19 10:55 12:40 17:45 MCH Creatinine Magnesium 4.00 H 3.70 H 3.30 H Lactate Dehydrogenase Urine Creatinine Ur Total Protein 24 Hr Urine Total Protein 05/16/19 04:54 MCH 27 L Creatinine Magnesium Lactate Dehydrogenase Urine Creatinine Ur Total Protein 24 Hr Urine Total Protein Laboratory Results - last 24 hr 05/17/19 16:18 Blood Type O POSITIVE Antibody Screen Negative
[2019-05-18] MEDS ORDERED: PITOCin/NS 30 UNIT/500ML 30 UNITS/500 ML BAG IV SCH (09:00)
[2019-05-18] MEDS ORDERED: PITOCin/NS 20 UNIT/1000ML DRIP 20 UNITS/1,000 ML BAG IV SCH ×3 (09:00→19:00)
[2019-05-18] MEDS ORDERED: BRETHINE IVP PRN (09:30)
[2019-05-18] MEDS ORDERED: BRETHINE SUB-Q PRN (09:30)
[2019-05-18] MEDS ORDERED: PHENERGAN PO PRN ×3 (09:30→21:58)
[2019-05-18] MEDS ORDERED: XYLOCAINE 2% INFILTRATI NR (09:30)
[2019-05-18] MEDS ORDERED: SUBLIMAZE IV PRN (09:30)
[2019-05-18] MEDS ORDERED: ZOFRAN IV PRN ×3 (09:30→21:58)
[2019-05-18] MEDS ORDERED: MINERAL OIL PO PRN (09:30)
[2019-05-18] MEDS: PROCARDIA XL PO SCH (11:20)
[2019-05-18] MEDS: PRENATAL VITAMIN PO SCH (11:24)
--- NOTE | 2019-05-18 12:08 | Event Note ---
Date: 05/18/19 Patient lying in bed resting recheck cervix 1-50/high day 3 of IOL arom 18 hrs After discussing mgt with patient, we discussed continuing with IOL or proceed with primary csec secondary to failed iol, failure to progress. we will recheck in 1hr r/b/a of procedure reviewed which include bleeding infection, damage to pelvic and non pelvic organs, risk of blood clots, pain, further shurgery , damage to pelvic and non pelvic organs
[2019-05-18] MEDS ORDERED: PITOCin/NS 30 UNIT/500ML 30,000 MILLIUNITS/500 ML BAG IV ONE (12:45)
[2019-05-18 12:50] LABS: Basophils % (Auto) 0.3 % (0.0-1.8); Eosinophils # (Auto) 0.1 K/mm3 (0.0-0.4); Eosinophils % (Auto) 1.2 % (0.0-4.3); Hematocrit 37.4 % (30.3-42.9); Hemoglobin 12.3 gm/dl (10.1-14.3); Lymphocytes % (Auto) 9.8 % (13.4-35.0); Mean Corpuscular HGB Conc 33 % (30-34); Mean Corpuscular Volume 81 fl (79-97); Monocytes # (Auto) 1.1 K/mm3 (0.0-0.8); Monocytes % (Auto) 9.9 % (0.0-7.3); Platelet Count 274 K/mm3 (140-440); Red Blood Count 4.61 M/mm3 (3.65-5.03); Red Cell Distribution Width 14.3 % (13.2-15.2)
[2019-05-18] MEDS ORDERED: REGLAN IV ONE (13:25)
[2019-05-18] MEDS ORDERED: PEPCID IV ONE (13:25)
[2019-05-18] MEDS ORDERED: BICITRA PO ONE (13:25)
[2019-05-18] MEDS ORDERED: LACTATED RINGERS 1,000 ML IV SCH (14:00)
[2019-05-18 14:02] LABS: Basophils % (Auto) 0.2 % (0.0-1.8); Eosinophils # (Auto) 0.1 K/mm3 (0.0-0.4); Eosinophils % (Auto) 0.7 % (0.0-4.3); Hematocrit 37.2 % (30.3-42.9); Hemoglobin 12.6 gm/dl (10.1-14.3); Lymphocytes % (Auto) 7.2 % (13.4-35.0); Mean Corpuscular HGB Conc 34 % (30-34); Mean Corpuscular Volume 80 fl (79-97); Monocytes # (Auto) 1.2 K/mm3 (0.0-0.8); Monocytes % (Auto) 9.2 % (0.0-7.3); Platelet Count 263 K/mm3 (140-440); Red Blood Count 4.67 M/mm3 (3.65-5.03); Red Cell Distribution Width 14.2 % (13.2-15.2)
[2019-05-18] MEDS ORDERED: MARCAINE 0.5% INFILTRATI ONE (14:27)
[2019-05-18] MEDS ORDERED: DEXMEDETOMIDINE IV ONE (14:27)
--- NOTE | 2019-05-18 14:30 | Anesthesia Consultation ---
Anesthesia Consult and Med Hx Date of service: 05/18/19 - Airway Anesthetic Teeth Evaluation: Good ROM Head & Neck: Adequate Mental/Hyoid Distance: Adequate Mallampati Class: Class II Intubation Access Assessment: Probably Good - Pulmonary Exam CTA: Yes - Cardiac Exam Cardiac Exam: RRR - Pre-Operative Health Status ASA Pre-Surgery Classification: ASA3 Proposed Anesthetic Plan: Spinal - Pulmonary Hx Asthma: No COPD: No Hx Pneumonia: No - Cardiovascular System Hx Hypertension: Yes (PIH) - Central Nervous System Hx Seizures: No Hx Psychiatric Problems: No - Endocrine Hx Renal Disease: No Hx End Stage Renal Disease: No Hx Hypothyroidism: No Hx Hyperthyroidism: No - Hematic Hx Anemia: No Hx Sickle Cell Disease: No - Other Systems Hx Alcohol Use: No Hx Obesity: Yes
--- NOTE | 2019-05-18 14:30 | Anesthesia Day of Surgery ---
Anesthesia Day of Surgery - Day of Surgery Patient Examined: Yes Patient H&P Reviewed: Yes Patient is NPO: Yes
[2019-05-18] MEDS ORDERED: ANCEF/STERILE WATER 2 GM/20 ML 2 GM/20 ML SYRINGE IV ONE (16:21)
[2019-05-18] MEDS ORDERED: NACL 0.9% IR ONE (16:45)
[2019-05-18] MEDS ORDERED: WATER FOR IRRIG STERILE IR ONE (16:45)
[2019-05-18] MEDS ORDERED: CYTOTEC PR ONE (17:29)
[2019-05-18] MEDS ORDERED: ZOFRAN ONE (17:30)
[2019-05-18] MEDS ORDERED: NEO SYNEPHRINE ONE ×2 (17:30→17:50)
[2019-05-18] MEDS ORDERED: CYTOTEC PR STA (17:40)
--- NOTE | 2019-05-18 18:20 | Operative Report ---
Operative Report Operative Report: PREOPERATIVE DIAGNOSES: 1. Intrauterine at 34 weeks + 2. Morbid obesity 3. Superimposed pree 4. Poor care 5. Failure to progress POSTOPERATIVE DIAGNOSES: 1. -5 YAZMIN PROCEDURE PERFORMED: Primary low-transverse section. SURGEON: Dr. Yulisa Miller MD ANESTHESIA: Epidural. ESTIMATED BLOOD LOSS: 500 mL. COMPLICATIONS: None. FINDINGS: Male infant in cephalic presentation, OP position, weight 6 pounds 2 ounces. Apgars were 8 at 1 minute and 8 at 5 minutes. Normal uterus, tubes, and ovaries were noted. INDICATIONS: The patient is a 33-year-old 1, para 0 female, who presented to labor and delivery for gallstone pain and noted to have chronic HTN with superimposed pree. it was then recommneded to IOL at 34 weeks. Failure to progress after pitocin and cervidil and cytotec. Patietn remained 2 cm. The procedure was described to the patient in detail including possible risks of bleeding, infection, injury to surrounding organs, and possible need for further surgery. Informed consent was obtained prior to proceeding with the procedure. PROCEDURE NOTE: The patient was taken to the operating room where epidural anesthesia was found to be adequate. The patient was prepped and draped in the usual sterile fashion in the dorsal supine position with a left-crowley tilt. A Pfannenstiel skin incision was made with the scalpel and carried through to the underlying layer of fascia using the Bovie. The fascia was incised in the midline and extended laterally using Sotomayor scissors. Trevor clamps were used to elevate the superior aspect of the fascial incision, which was elevated, and the underlying rectus muscles were dissected off bluntly and using Sotomayor scissors. Attention was then turned to the inferior aspect of the fascial incision, which in similar fashion was grasped with Trevor clamps, elevated, and the underlying rectus muscles were dissected off bluntly and using Sotomayor scissors. The rectus muscles were dissected in the midline. The peritoneum was bluntly dissected, entered, and extended superiorly and inferiorly with good visualization of the bladder. The bladder blade was inserted. The vesicouterine peritoneum was identified with pickups and entered sharply using Metzenbaum scissors. This incision was extended laterally and the bladder flap was created digitally. The bladder blade was reinserted. The lower uterine segment was incised in a transverse fashion using the scalpel and extended using manual traction. Clear fluid was noted. The was subsequently delivered atraumatically. The nose and mouth were bulb suctioned. The cord was clamped and cut. The infant was subsequently handed to the awaiting nursery nurse. Next, cord blood was obtained per the patient's request for cord blood donation, which took several minutes to perform. Subsequent to the collection of this blood, the placenta was removed spontaneously intact with a 3-vessel cord noted. The uterus was exteriorized and cleared of all clots and debris. The uterine incision was repaired in 2 layers using 0 chromic suture. Hemostasis was visualized. The uterus was returned to the abdomen. The pelvis was copiously irrigated. The uterine incision was reexamined and was noted to be hemostatic. The rectus muscles were reapproximated in the midline using 3-0 Vicryl. The fascia was closed with 0 PDS, the subcutaneous layer was closed with 3-0 plain gut, and the skin was closed with anamaria. Sponge, lap, and instrument counts were correct x2. The patient was stable at the completion of the procedure and was subsequently transferred to the recovery room in stable condition.
[2019-05-18] MEDS ORDERED: LANSINOH TP PRN ×2 (18:21→21:58)
[2019-05-18] MEDS ORDERED: NARCAN 0.4 MG/1 ML IV PRN ×2 (18:21→18:37)
[2019-05-18] MEDS ORDERED: TUCKS PAD TP PRN ×2 (18:21→21:58)
[2019-05-18] MEDS ORDERED: PHENERGAN PR PRN ×2 (18:37→21:58)
--- NOTE | 2019-05-18 18:37 | Post Anesthesia Evaluation ---
- Post Anesthesia Evaluation Patient Participated: Yes Airway Patent: Yes Stable Respiratory Function: Yes Nausea/Vomiting: No Temp > 96.8F: Yes Pain Manageable: Yes Adequeate Hydration: Yes Anesthesia Complications: No Block Receding Appropriately: Yes
[2019-05-18] MEDS ORDERED: SODIUM CHLORIDE FLUSH SYRINGE 10 ML IV SCH ×2 (19:00)
[2019-05-18] MEDS: MAGNESIUM SULFATE 40GM/1000ML 40 GM/1,000 ML BAG IV SCH (20:28)
[2019-05-18] MEDS ORDERED: TYLENOL PO PRN (21:58)
[2019-05-18] MEDS ORDERED: DULCOLAX PR PRN (21:58)
[2019-05-18] MEDS ORDERED: BENADRYL PO PRN (21:58)
[2019-05-18] MEDS ORDERED: MILK OF MAGNESIA PO PRN (21:58)
[2019-05-18] MEDS ORDERED: COLACE PO SCH (22:00)
[2019-05-18] MEDS: IBUPROFEN PO SCH (22:00)
[2019-05-18] MEDS ORDERED: SODIUM CHLORIDE FLUSH SYRINGE 10 ML IV NR (22:00)
[2019-05-18] MEDS: TYLENOL PO PRN (22:14)
[2019-05-18] MEDS: NUBAIN IV PRN (22:15)
[2019-05-19] MEDS: TORADOL IV PRN ×3 (01:49→20:09)
[2019-05-19] MEDS: DILAUDID IV PRN ×2 (03:42→09:33)
[2019-05-19] MEDS: IBUPROFEN PO SCH ×4 (04:00→22:00)
[2019-05-19] MEDS: LACTATED RINGERS 1,000 ML IV SCH (05:44)
[2019-05-19 05:58] LABS: Hematocrit 34.2 % (30.3-42.9); Hemoglobin 11.2 gm/dl (10.1-14.3)
[2019-05-19] MEDS ORDERED: BOOSTRIX IM ONE ×2 (06:00→23:00)
[2019-05-19] MEDS ORDERED: M-M-R II VACCINE SUB-Q ONE (06:00)
[2019-05-19] MEDS: TYLENOL PO PRN (06:16)
[2019-05-19] MEDS: NUBAIN IV PRN ×2 (06:16→17:29)
--- NOTE | 2019-05-19 08:45 | Progress Note ---
Assessment and Plan A/P POD#1 s/p primary csec for failure to progress for IOL superimposed pree BP stable on labetolol and procardia on mag for 24 hrs continue routine PP Subjective - Subjective Date of service: 05/19/19 Principal diagnosis: Chronic HTn with superimposed pree, s/p csec Patient reports: appetite normal, voiding normally, pain well controlled, flatus, ambulating normally : in NICU Objective - Vital Signs Latest vital signs: Vital Signs Temp Pulse Resp BP Pulse Ox 05/19/19 08:05 93 H 146/86 05/19/19 07:05 91 H 146/86 05/19/19 06:22 93 H 171/91 05/19/19 06:10 98.4 F 05/19/19 05:05 94 H 143/80 05/19/19 04:05 92 H 142/64 05/19/19 03:05 92 H 133/76 05/19/19 02:05 96 H 134/79 05/19/19 01:45 98.1 F 05/19/19 01:05 99 H 142/67 05/19/19 00:05 99 H 128/61 05/18/19 23:05 118 H 125/85 05/18/19 22:15 98.7 F 18 99 05/18/19 22:14 114 H 159/82 05/18/19 22:13 114 H 159/82 05/18/19 19:20 104 H 16 125/84 99 05/18/19 18:55 104 H 14 107/71 97 05/18/19 18:39 107 H 16 110/78 99 05/18/19 18:34 105 H 16 90/56 98 05/18/19 18:29 105 H 14 93/67 99 05/18/19 18:24 98.4 F 107 H 12 107/78 98 05/18/19 16:20 111 H 173/94 05/18/19 16:13 97.8 F 16 05/18/19 16:00 107 H 171/94 05/18/19 15:50 108 H 173/94 05/18/19 15:20 105 H 150/71 05/18/19 14:50 106 H 119/68 05/18/19 14:20 109 H 150/67 05/18/19 14:06 104 H 170/103 05/18/19 13:47 103 H 177/100 05/18/19 13:20 102 H 185/96 05/18/19 12:59 102 H 177/98 05/18/19 11:53 22 05/18/19 11:51 102 H 166/82 05/18/19 11:29 97.7 F 05/18/19 11:20 101 H 136/79 05/18/19 11:19 100 H 145/81 05/18/19 10:51 100 H 145/81 05/18/19 10:23 102 H 146/75 05/18/19 10:21 104 H 180/101 05/18/19 09:51 100 H 168/96 05/18/19 09:34 97 H 161/92 05/18/19 09:23 98.4 F 05/18/19 08:50 100 H 157/87 Intake and Output 05/18/19 05/19/19 05/19/19 23:59 07:59 15:59 Intake Total 2506.667 1467.083 Output Total 1775 1000 Balance 731.667 467.083 Intake: IV 2266.667 267.083 Lactated Ringers 1,000 ml 866.667 267.083 @ 125 mls/hr IV DIRECT KHRIS Rx#:[id number] Oral 240 1200 Output: Urine 1775 1000 Indwelling Catheter 150 1000 Uretheral (Jeter) 750 Void 700 Other: Total, Intake Amount 240 600 Total, Output Amount 150 100 Estimated Blood Loss 500 - Exam Breasts: Present: normal Cardiovascular: Present: Regular rate, Normal S1 Lungs: Present: Clear to auscultation, Normal air movement Abdomen: Present: normal appearance, soft, normal bowel sounds. Absent: distention, tenderness, guarding Vulva: both: normal Uterus: Present: normal, firm, fundal height below umbilicus. Absent: bogginess Extremities: Present: normal Deep Tendon Reflex Grade: Normal +2 Incision: Present: normal, dressed - Labs Labs: Abnormal lab results 05/11/19 05/18/19 05/18/19 Range/Units 12:30 12:18 13:46 WBC 13.3 H (4.5-11.0) K/mm3 MCH 27 L 27 L (28-32) pg Lymph % (Auto) 9.8 L 7.2 L (13.4-35.0) % Harvey % (Auto) 9.9 H 9.2 H (0.0-7.3) % Lymph # 1.0 L 1.0 L (1.2-5.4) K/mm3 Harvey # 1.1 H 1.2 H (0.0-0.8) K/mm3 Seg Neutrophils % 78.8 H 82.7 H (40.0-70.0) % Seg Neutrophils # 8.4 H 11.0 H (1.8-7.7) K/mm3 Magnesium 1.60 L (1.7-2.3) mg/dL 05/19/19 05/19/19 Range/Units 01:42 05:30 WBC (4.5-11.0) K/mm3 MCH (28-32) pg Lymph % (Auto) (13.4-35.0) % Harvey % (Auto) (0.0-7.3) % Lymph # (1.2-5.4) K/mm3 Harvey # (0.0-0.8) K/mm3 Seg Neutrophils % (40.0-70.0) % Seg Neutrophils # (1.8-7.7) K/mm3 Magnesium 3.40 H 4.10 H (1.7-2.3) mg/dL
[2019-05-19] MEDS: PRENATAL VITAMIN PO SCH (09:33)
[2019-05-19] MEDS: PROCARDIA XL PO SCH (09:33)
[2019-05-19] MEDS: NORMODYNE PO SCH ×2 (09:33→23:01)
[2019-05-19] MEDS ORDERED: PRENATAL VITAMIN PO SCH (10:00)
[2019-05-19] MEDS: NORCO 5/325 PO PRN ×2 (13:00→23:01)
[2019-05-19 15:54] LABS: Hematocrit 32.8 % (30.3-42.9); Hemoglobin 10.9 gm/dl (10.1-14.3)
[2019-05-19] MEDS: MAGNESIUM SULFATE 40GM/1000ML 40 GM/1,000 ML BAG IV SCH (16:28)
[2019-05-20] MEDS: TORADOL IV PRN (05:54)
[2019-05-20] MEDS: IBUPROFEN PO SCH ×4 (06:47→23:59)
[2019-05-20] MEDS: PERCOCET 5/325 PO PRN ×2 (08:42→14:44)
--- NOTE | 2019-05-20 09:51 | Progress Note ---
Assessment and Plan A/P POD#2 s/p primary csec for failure to progress for IOL superimposed pree BP stable on labetolol and procardia s/p mag for 24 hrs continue routine PP Subjective - Subjective Date of service: 05/20/19 Principal diagnosis: Chronic HTn with superimposed pree, s/p csec Patient reports: appetite normal, voiding normally, pain well controlled, flatus, ambulating normally [place]: in NICU Objective - Vital Signs Latest vital signs: Vital Signs Temp Pulse Resp BP BP 05/20/19 08:30 98.2 F 101 H 18 124/71 05/20/19 06:24 18 05/20/19 05:54 20 05/20/19 05:20 98.3 F 105 H 18 111/66 05/20/19 01:46 99.2 F 22 104/50 05/20/19 01:40 96 H 05/20/19 00:01 18 05/19/19 23:01 100 H 20 120/74 05/19/19 22:40 98.1 F 100 H 18 120/74 05/19/19 20:31 103 H 112/56 05/19/19 19:30 102 H 139/79 05/19/19 18:30 98 H 135/84 05/19/19 17:31 94 H 123/61 05/19/19 17:30 99.0 F 18 05/19/19 16:31 93 H 121/64 05/19/19 15:30 101 H 113/60 05/19/19 15:07 18 05/19/19 14:30 93 H 131/69 05/19/19 13:30 90 110/56 05/19/19 13:04 18 05/19/19 12:56 89 126/79 05/19/19 11:30 89 128/69 05/19/19 11:13 16 Intake and Output 05/19/19 05/20/19 05/20/19 23:59 07:59 15:59 Intake Total 180.833 320 Output Total 900 Balance -719.167 320 Intake: IV 180.833 MAGNESIUM SULFATE 40GM/ 180.833 1000ML 40 gm In 1,000 ml @ 2 GM/HR 50 mls/hr IV DIRECT KHRIS Rx#:[id number] Oral 320 Output: Urine 900 Indwelling Catheter 900 Other: Total, Intake Amount 320 Total, Output Amount 150 - Exam Breasts: Present: normal Cardiovascular: Present: Regular rate, Normal S1 Lungs: Present: Clear to auscultation, Normal air movement Abdomen: Present: normal appearance, soft, normal bowel sounds. Absent: distention, tenderness, guarding Uterus: Present: normal, firm, fundal height below umbilicus. Absent: bogginess, tenderness Extremities: Present: normal Deep Tendon Reflex Grade: Normal +2 Incision: Present: normal, dry, intact - Labs Labs: Abnormal lab results 05/19/19 05/19/19 Range/Units 15:13 19:14 Magnesium 4.20 H 3.90 H (1.7-2.3) mg/dL
[2019-05-20] MEDS: PRENATAL VITAMIN PO SCH (10:33)
[2019-05-20] MEDS: PROCARDIA XL PO SCH (11:54)
[2019-05-20] MEDS: NORMODYNE PO SCH ×2 (11:54→21:59)
[2019-05-20] MEDS: NORCO 5/325 PO PRN (20:01)
[2019-05-21] MEDS: IBUPROFEN PO SCH (05:07)
[2019-05-21] MEDS ORDERED: PROCARDIA XL PO SCH ×2 (07:36→10:00)
--- NOTE | 2019-05-21 08:07 | Progress Note ---
Assessment and Plan A: POD#3 s/p primary at 34 wks secondary to chronic hypertension with superimposed preeclampsia P: Anticipate discharge later today with follow up on TueMay 25, 2019 for staple removal and blood pressure check Subjective - Subjective Date of service: 05/21/19 Principal diagnosis: Chronic HTn with superimposed pree, s/p csec, morbid obesity Interval history: Pt passing flatus. Reports "swimming" feeling when she sits in the chair but not when she walks which she reports is because her "neck muscles are tight." Patient reports: appetite normal, voiding normally, pain well controlled, flatus, ambulating normally (per HPI), no bowel movement [place]: in NICU Objective - Vital Signs Latest vital signs: Vital Signs Temp Pulse Resp BP BP BP 05/21/19 00:30 98.8 F 71 19 129/76 05/20/19 21:59 117/79 05/20/19 16:46 98.1 F 104 H 18 109/57 05/20/19 12:15 98.1 F 109 H 116/61 05/20/19 08:30 98.2 F 101 H 18 124/71 Intake and Output 05/20/19 05/21/19 05/21/19 22:59 06:59 14:59 Intake Total 560 300 Output Total 800 Balance -240 300 Intake: Oral 560 Intake, Free Water 300 Output: Urine 800 Indwelling Catheter 800 Other: Total, Intake Amount 240 Total, Output Amount 800 # Voids Void 1 - Exam Breasts: Present: deferred Cardiovascular: Present: Regular rate Lungs: Present: Clear to auscultation Abdomen: Present: soft (obese ), normal bowel sounds Uterus: Present: fundal height below umbilicus Extremities: Present: edema Incision: Present: intact (with anamaria )
--- NOTE | 2019-05-21 08:12 | Discharge Summary ---
Providers - Providers Date of Admission: 05/15/19 12:32 Date of discharge: 05/21/19 Attending physician: KAILASH MEZA 05/10/19 08:06 Consult to Physician [CONS] Routine Comment: Consulting Provider: SHAMEKA COSBY Physician Instructions: Reason For Exam: hypertension affecting 05/13/19 12:25 Consult to Physician [CONS] Routine Comment: Consulting Provider: LOLA RIOS Physician Instructions: Reason For Exam: HYPERTENSION Primary care physician: [employer] Hospitalization Reason for admission: other (abdominal pain, elevated blood pressure ) Delivery: Procedure: section, primary low transverse Procedure details: Please see delivery note. Incision: intact (with anamaria ) Other procedures: none (IV Magnesium sulfate administration for 24 hrs after delivery ) complications: none Discharge diagnosis: delivery baby: male Hospital course: Pt was admitted with abdominal pain and noted to have elevated blood pressures and proteinuria consistent with chronic hypertension with superimposed preeclampsia. MFM was consulted with recommendation for delivery at 34 wks. Pt underwent induction but ultimately required a primary section for failed induction which she tolerated well. She did receive magnesium sulfate for 24 hrs after delivery. Her postoperative course was uncomplicated and she met discharge criteria on POD#3. She will follow up in 4 days in the office for blood pressure check and staple removal. Condition at discharge: Stable Disposition: [id number] TO HOME OR SELFCARE - Discharge Diagnoses (1) Morbid obesity Status: Acute (2) S/P section Status: Acute (3) delivery Status: Acute (4) Hypertension affecting Status: Acute Qualifiers: Trimester: third trimester Qualified Code(s): O16.3 - Unspecified maternal hypertension, third trimester (5) Pre-eclampsia superimposed on chronic hypertension Status: Acute Plan - Discharge Medications Prescriptions: Labetalol [Labetalol 200mg TAB] 400 mg PO BID #120 tablet Ibuprofen [Motrin] 800 mg PO Q8HR PRN #30 tablet PRN Reason: Pain, Moderate (4-6) oxyCODONE /ACETAMINOPHEN [Percocet 5/325] 1 tab PO Q6HR PRN #40 tablet PRN Reason: Pain NIFEdipine XL [Procardia Xl] 60 mg PO QDAY #30 tablet - Provider Discharge Summary Activity: routine, no sex for 6 weeks, no heavy lifting 4 weeks, no strenuous exercise Diet: routine Instructions: routine Additional instructions: [] Smoking cessation referral if applicable(refer to patient education folder for contact #) [] Refer to [facility]'s [facility] Booklet Call your doctor immediately for: * Fever > 100.5 * Heavy vaginal bleeding ( >1 pad per hour) * Severe persistent headache * Shortness of breath * Reddened, hot, painful area to leg or breast * Drainage or odor from incision. * Keep incision clean and dry at all times and follow doctor's instructions regarding bathing/showering - Follow up plan Follow up: PRIMARY CARE, [Primary Care Provider] - 7 Days XAVI MILLS MD [Staff Physician] - 05/25/19 (Please call to schedule an appt for staple removal and blood pressure check this Saturday May 25, 2019. Office number: [phone] )
[2019-05-21] MEDS ORDERED: CITRATE OF MAGNESIA PO NR (09:00)
[2019-05-21] MEDS: NORCO 5/325 PO PRN (11:43)
[2019-05-21] MEDS: PRENATAL VITAMIN PO SCH (14:00)
[2019-05-21] MEDS: NORMODYNE PO SCH (14:00)
[2019-05-21 18:45] VITALS: BP 146/88
== END 2019-05-21 16:00 | disposition home or self-care (01) | DRG 786 ==
LOC: TRG 00:13 → LD 03:25 → TRG 03:25 → OBSVTOIN 05-15 12:32 → OB 05-19 22:28
PROVIDERS: ADMIT Obstetrics & Gynecology; ATTEND Obstetrics & Gynecology
PROC: 3E0P7VZ Introduction of Hormone into Female Reproductive, Via Natural or Artificial Opening (ICD-10-PCS; 2019-05-16)
PROC: 10D00Z1 Extraction of Products of Conception, Low, Open Approach (ICD-10-PCS; principal; 2019-05-18)
PROC: 10H07YZ Insertion of Other Device into Products of Conception, Via Natural or Artificial Opening (ICD-10-PCS; 2019-05-18)
PROC: 3E0234Z Introduction of Serum, Toxoid and Vaccine into Muscle, Percutaneous Approach (ICD-10-PCS; 2019-05-19)
DX: O10.02 Pre-existing essential hypertension complicating childbirth (principal); O60.14X0 Preterm labor third trimester with preterm delivery third trimester, not applicable or unspecified; O11.4 Pre-existing hypertension with pre-eclampsia, complicating childbirth; E66.01 Morbid (severe) obesity due to excess calories; O99.214 Obesity complicating childbirth; O75.89 Other specified complications of labor and delivery; R10.11 Right upper quadrant pain; Z37.0 Single live birth; Z23 Encounter for immunization; Z3A.33 33 weeks gestation of pregnancy; O61.0 Failed medical induction of labor; O62.0 Primary inadequate contractions
CPT/HCPCS: 36415; 76705; 76805; 76816; 76819; 76820; 80307; 81001; 82565; 82570; 82575; 82950; 82951; 83615; 83735; 84156; 84450; 84460; 84550; 85014; 85018; 85025; 85027; 85660; 86592; 86706; 86762; 86803; 86850; 86900; 86901; 87806; 88305; 88307; 90471; 90715; 96374; 96376; G0378; J0290; J0360; J0595; J0690; J0702; J1170; J1885; J2300; J2370; J2405; J2590; J2765; J3010; J3475; J3490; J7120; J7121